=== PATIENT | female | born 1950 | race Caucasian/White ===

== ENCOUNTER 2017-07-24 14:18 | Outpatient (CLI) | payer OTHER ==
[2015-11-29 19:12] VITALS: BP 165/96
--- NOTE | 2017-07-24 15:06 | Diagnostic Imaging Report ---
SONIDO TAYLOR [facility] [address] [facility].[address] [id number] Report Submission Date: Jul 24, 2017 2:44:52 PM CHEMICAL PREPARER Patient Study Name: KEN CLAYTON Date: Jul 24, 2017 2:31:52 PM CHEMICAL PREPARER Modality Type: CR Gender: F Description: CHEST : 54 Institution: [facility] Physician: SONIDO TAYLOR Examination: PA and lateral chest. History: Evaluate lung gonsales. Comparison exam: None available for direct review. Findings: PA lateral chest demonstrate a normal cardiac and mediastinal silhouette. Tortuous aorta. Elevation of the right hemidiaphragm. Left hilar and left midlung granulomas. No focal infiltrate. No blunting of the costophrenic margins. Osseous structures are appropriate for age. Impression: No acute appearing pulmonary process. Electronically signed on Jul 24, 2017 2:44:52 PM CHEMICAL PREPARER by: Jose BRYANT
== END 2017-07-24 14:20 ==
LOC: RAD 14:18
PROVIDERS: ATTEND Physician Assistant
DX: R05 Cough (principal)
CPT/HCPCS: 71020